=== PATIENT | male | born 1970 | race American Indian/Alaskan Native ===

== ENCOUNTER 2021-09-01 09:36 | Emergency (ER) | payer SELFPAY ==
--- NOTE | 2021-09-01 11:53 | Emergency Department Report ---
ED Chest Pain HPI - General Chief Complaint: Chest Pain Stated Complaint: BUMP ON HANDS/CP Time Seen by Provider: 09/01/21 11:36 Source: patient Mode of arrival: Ambulatory Limitations: No Limitations - History of Present Illness Initial Comments: 50-year-old -[place] male patient presents with complaints of right- sided chest pain x3 days. He states the pain feels like a pressure and rates it as a 7/10 in severity. Pain worsens with deep inhalation. Patient also reports shortness of breath at rest that worsens with exertion. He admits to a nonproductive cough without hemoptysis. No loss of taste or smell per patient. He is not vaccinated against COVID-19. He denies any past medical history or heart history or family heart history. 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 He denies any leg pain/swelling or history of DVT/PE/cancer. Pain Radiation: back - Related Data Previous Rx's Medication Instructions Recorded Last Taken Type Ibuprofen [Motrin] 800 mg PO Q8HR #30 tablet 05/22/15 Unknown Rx traMADoL [Ultram 50 MG tab] 50 mg PO Q6HR PRN #20 tablet 05/22/15 Unknown Rx Acetaminophen/Codeine [Tylenol #3] 1 tab PO Q6H PRN #20 tab 08/01/15 Unknown Rx Cyclobenzaprine HCl [Flexeril 5 MG 10 mg PO TID #15 tab 08/01/15 Unknown Rx TAB] Amoxicillin/Potassium Clav 1 each PO BID 10 Days #20 tab 09/01/21 Unknown Rx [Augmentin 875-125 Tablet] Azithromycin [Zithromax Z-ERMIAS] 0 mg PO DAILY #6 tab 09/01/21 Unknown Rx Allergies Allergy/AdvReac Type Severity Reaction Status Date / Time No Known Allergies Allergy Unverified 08/01/15 14:27 Heart Score - HEART Score History: Slightly suspicious EKG: Normal Age: 45-65 Risk factors: No known risk factors Troponin: < normal limit HEART Score: 1 - EKG Read Time Time EKG Completed: 09:50 EKG Read Time: 09:55 - Critical Actions Critical Actions: 0-3 pts:0.9-1.7%risk of adverse cardiac event.Candidate for discharge ED Review of Systems ROS: Stated complaint: BUMP ON HANDS/CP Other details as noted in HPI Constitutional: malaise. denies: chills, fever, weakness Respiratory: cough, shortness of breath, SOB with exertion, SOB at rest Cardiovascular: chest pain. denies: palpitations, edema, syncope Gastrointestinal: denies: abdominal pain, nausea, vomiting, diarrhea Musculoskeletal: denies: back pain Neurological: denies: headache, numbness, paresthesias, abnormal gait ED Past Medical Hx - Social History Smoking Status: Never Smoker Substance Use Type: None - Medications Home Medications: Home Medications Medication Instructions Recorded Confirmed Last Taken Type Ibuprofen [Motrin] 800 mg PO Q8HR #30 tablet 05/22/15 Unknown Rx traMADoL [Ultram 50 MG tab] 50 mg PO Q6HR PRN #20 tablet 05/22/15 Unknown Rx Acetaminophen/Codeine [Tylenol #3] 1 tab PO Q6H PRN #20 tab 08/01/15 Unknown Rx Cyclobenzaprine HCl [Flexeril 5 MG 10 mg PO TID #15 tab 08/01/15 Unknown Rx TAB] Amoxicillin/Potassium Clav 1 each PO BID 10 Days #20 tab 09/01/21 Unknown Rx [Augmentin 875-125 Tablet] Azithromycin [Zithromax Z-ERMIAS] 0 mg PO DAILY #6 tab 09/01/21 Unknown Rx ED Physical Exam - General Limitations: No Limitations General appearance: alert, in no apparent distress - Head Head exam: Present: atraumatic, normocephalic - Eye Eye exam: Present: normal appearance. Absent: scleral icterus - Neck Neck exam: Present: normal inspection, full ROM - Respiratory Respiratory exam: Present: normal lung sounds bilaterally. Absent: respiratory distress - Cardiovascular Cardiovascular Exam: Present: regular rate, normal rhythm. Absent: systolic murmur, diastolic murmur, rubs, gallop - Extremities Exam Extremities exam: Absent: calf tenderness (No swelling or tenderness to palpation noted bilaterally to leg) - Back Exam Back exam: Present: full ROM. Absent: CVA tenderness (R), paraspinal tenderness, vertebral tenderness - Neurological Exam Neurological exam: Present: alert, oriented X3 - Psychiatric Psychiatric exam: Present: normal affect, normal mood - Skin Skin exam: Present: warm, dry, intact, normal color. Absent: rash, cyanosis ED Course Vital Signs 09/01/21 09/01/21 09:41 18:06 Temperature 99.5 F 97.8 F Pulse Rate 90 85 Respiratory 16 16 Rate Blood Pressure 155/86 135/78 [Right] O2 Sat by Pulse 98 96 Oximetry ED Medical Decision Making - Lab Data Result diagrams: 09/01/21 12:12 09/01/21 12:12 Lab Results 09/01/21 09/01/21 09/01/21 Range/Units 12:12 12:12 12:12 WBC 13.9 H (4.5-11.0) K/mm3 RBC 5.02 (3.65-5.03) M/mm3 Hgb 14.4 (11.8-15.2) gm/dl Hct 45.2 (35.5-45.6) % MCV 90 (84-94) fl MCH 29 (28-32) pg MCHC 32 (32-34) % RDW 14.4 (13.2-15.2) % Plt Count 238 (140-440) K/mm3 Lymph % (Auto) 13.7 (13.4-35.0) % [place] % (Auto) 16.0 H (0.0-7.3) % Eos % (Auto) 0.0 (0.0-4.3) % Baso % (Auto) 0.2 (0.0-1.8) % Lymph # (Auto) 1.9 (1.2-5.4) K/mm3 [place] # (Auto) 2.2 H (0.0-0.8) K/mm3 Eos # (Auto) 0.0 (0.0-0.4) K/mm3 Baso # (Auto) 0.0 (0.0-0.1) K/mm3 Seg Neutrophils % 70.1 H (40.0-70.0) % Seg Neutrophils # 9.7 H (1.8-7.7) K/mm3 D-Dimer > 98720 H (0-234) ng/mlDDU Sodium 131 L (137-145) mmol/L Potassium 3.3 L (3.6-5.0) mmol/L Chloride 94.6 L (98-107) mmol/L Carbon Dioxide 24 (22-30) mmol/L Anion Gap 16 mmol/L BUN 5 L (9-20) mg/dL Creatinine 0.8 (0.8-1.3) mg/dL Estimated GFR > 60 ml/min BUN/Creatinine Ratio 6 % Glucose 109 H (75-100) mg/dL Calcium 9.0 (8.4-10.2) mg/dL Total Bilirubin 1.00 (0.1-1.2) mg/dL AST 24 (5-40) units/L ALT 33 (7-56) units/L Alkaline Phosphatase 66 (35-129) units/L Troponin T < 0.010 (0.00-0.029) ng/mL NT-Pro-B Natriuret Pep (0-900) pg/mL Total Protein 7.8 (6.3-8.2) g/dL Albumin 3.9 (3.9-5) g/dL Albumin/Globulin Ratio 1.0 % 09/01/21 Range/Units 12:12 WBC (4.5-11.0) K/mm3 RBC (3.65-5.03) M/mm3 Hgb (11.8-15.2) gm/dl Hct (35.5-45.6) % MCV (84-94) fl MCH (28-32) pg MCHC (32-34) % RDW (13.2-15.2) % Plt Count (140-440) K/mm3 Lymph % (Auto) (13.4-35.0) % [place] % (Auto) (0.0-7.3) % Eos % (Auto) (0.0-4.3) % Baso % (Auto) (0.0-1.8) % Lymph # (Auto) (1.2-5.4) K/mm3 [place] # (Auto) (0.0-0.8) K/mm3 Eos # (Auto) (0.0-0.4) K/mm3 Baso # (Auto) (0.0-0.1) K/mm3 Seg Neutrophils % (40.0-70.0) % Seg Neutrophils # (1.8-7.7) K/mm3 D-Dimer (0-234) ng/mlDDU Sodium (137-145) mmol/L Potassium (3.6-5.0) mmol/L Chloride (98-107) mmol/L Carbon Dioxide (22-30) mmol/L Anion Gap mmol/L BUN (9-20) mg/dL Creatinine (0.8-1.3) mg/dL Estimated GFR ml/min BUN/Creatinine Ratio % Glucose (75-100) mg/dL Calcium (8.4-10.2) mg/dL Total Bilirubin (0.1-1.2) mg/dL AST (5-40) units/L ALT (7-56) units/L Alkaline Phosphatase (35-129) units/L Troponin T (0.00-0.029) ng/mL NT-Pro-B Natriuret Pep 13.85 (0-900) pg/mL Total Protein (6.3-8.2) g/dL Albumin (3.9-5) g/dL Albumin/Globulin Ratio % - Radiology Data Radiology results: report reviewed CHEST 2 VIEWS INDICATION / CLINICAL INFORMATION: right chest pain. COMPARISON: None available. FINDINGS: SUPPORT DEVICES: None. HEART / MEDIASTINUM: No significant abnormality. LUNGS / PLEURA: Focal rounded airspace opacity within the right mid lung zone/right perihilar region measures approximately 6 cm. There are other patchy opacities within the bilateral lung ba ses. No pneumothorax. ADDITIONAL FINDINGS: No significant additional findings. IMPRESSION: 1. Right upper lobar pneumonia. Interval imaging following appropriate antimicrobial therapy is recommended to ensure resolution. CTA CHEST WITH IV CONTRAST INDICATION: right chest pain, elevated dimer. TECHNIQUE: Axial CT images were obtained through the chest after injection of 85 cc Omnipaque 350 IV contrast. 3 plane MIP reconstructions were produced. All CT scans at this location are performed using CT dose reduction for ALARA by means of automated exposure control. COMPARISON: 2 views of the chest performed today. FINDINGS: PULMONARY ARTERIES: No pulmonary emboli. AORTA AND ARTERIES: No significant abnormality. HEART: No significant abnormality. LYMPH NODES:No significant adenopathy. TRACHEA AND BRONCHI:No significant abnormality. LUNGS: Right upper lobe consolidation with air bronchograms is noted, correlating with the findings on the prior chest radiographs. The lungs are otherwise clear. No pneumothorax or pleural effusion. ADDITIONAL FINDINGS: None. UPPER ABDOMEN: No acute findings. Multiple hepatic cysts measure up to 1.5 cm. BONES: No significant osseous abnormality. IMPRESSION: 1. No CT evidence for pulmonary embolism. 2. Right upper lobe pneumonia. Reevaluation with PA and lateral chest radiographs in 2-3 weeks is recommended to ensure clearing. - Medical Decision Making 50-year-old -[place] male patient presents with complaints of right- sided chest pain x3 days. He states the pain feels like a pressure and rates it as a 7/10 in severity. Pain worsens with deep inhalation. Patient also reports shortness of breath at rest that worsens with exertion. He admits to a nonproductive cough without hemoptysis. No loss of taste or smell per patient. He is not vaccinated against COVID-19. He denies any past medical history or heart history or family heart history. 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 He denies any leg pain/swelling or history of DVT/PE/cancer. Patient ambulated by this provider and ambulatory pulse ox noted to be 91% on room air. No acute abnormalities noted on EKG. Troponin normal. CBC shows white count of 13.9. Chest x-ray shows right lobe pneumonia. 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 Dimer greater than 10,000. CTA chest is negative for PE and continues to show right lobe pneumonia. Patient is nontoxic-appearing. Discussed patient in detail with Dr. Oliveira-states given patient does not have comorbidities and is well-appearing, a trial of outpatient antibiotics for treatment is reasonable. Discussed this with patient. He states he is feeling well at this time. I discussed the possibility of admission for his pneumonia and patient states he would like to try antibiotics at home first. I discussed in great detail with patient signs and symptoms that should prompt immediate return to the ED, he verbalizes understanding. Also advised patient to drink plenty of water, take vitamin C and zinc, and have outpatient COVID-19 testing performed within the next 24 to 48 hours and self quarantine until his results are back. He denies any known drug allergies. Dose of Rocephin given here in ED. Patient is to discharge Critical care attestation.: If time is entered above; I have spent that time in minutes in the direct care of this critically ill patient, excluding procedure time. ED Disposition Clinical Impression: Right upper lobe pneumonia Disposition: HOME / SELF CARE / HOMELESS Is pt being admited?: No Condition: Stable Instructions: Community-Acquired Pneumonia, Adult, Gaic-mh-Olec, Bacterial Pneumonia (ED) Prescriptions: Amoxicillin/Potassium Clav [Augmentin 875-125 Tablet] 1 each PO BID 10 Days #20 tab Azithromycin [Zithromax Z-ERMIAS] 0 mg PO DAILY #6 tab Referrals: [facility] [Provider Group] - 3-5 Days Forms: Work/School Release Form(ED)
--- NOTE | 2021-09-01 12:25 | XRay Report ---
CHEST 2 VIEWS INDICATION / CLINICAL INFORMATION: right chest pain. COMPARISON: None available. FINDINGS: SUPPORT DEVICES: None. HEART / MEDIASTINUM: No significant abnormality. LUNGS / PLEURA: Focal rounded airspace opacity within the right mid lung zone/right perihilar region measures approximately 6 cm. There are other patchy opacities within the bilateral lung bases. No pne umothorax. ADDITIONAL FINDINGS: No significant additional findings. IMPRESSION: 1. Right upper lobar pneumonia. Interval imaging following appropriate antimicrobial therapy is nahid mmended to ensure resolution. Signer Name: Srikanth Padilla MD Signed: 09/01/2021 12:21 PM Workstation Name: [id number]
[2021-09-01 12:45] LABS: Basophils % (Auto) 0.2 % (0.0-1.8); Hematocrit 45.2 % (35.5-45.6); Hemoglobin 14.4 gm/dl (11.8-15.2); Lymphocytes # (Auto) 1.9 K/mm3 (1.2-5.4); Lymphocytes % (Auto) 13.7 % (13.4-35.0); Mean Corpuscular HGB Conc 32 % (32-34); Mean Corpuscular Volume 90 fl (84-94); Monocytes # (Auto) 2.2 K/mm3 (0.0-0.8); Platelet Count 238 K/mm3 (140-440); Red Blood Count 5.02 M/mm3 (3.65-5.03); Red Cell Distribution Width 14.4 % (13.2-15.2)
[2021-09-01 13:20] LABS: Alanine Aminotransferase 33 units/L (7-56); Albumin 3.9 g/dL (3.9-5); BUN/Creatinine Ratio 6; Blood Urea Nitrogen 5 mg/dL (9-20); Hemolysis Index 3
[2021-09-01] MEDS ORDERED: SODIUM CHLORIDE 0.9% 1000 ML 1,000 ML IV ONE (13:37)
[2021-09-01] MEDS ORDERED: POTASSIUM CHLORIDE ER 20 MEQ TAB PO ONE (13:37)
--- NOTE | 2021-09-01 15:15 | Cat Scan Report ---
CTA CHEST WITH IV CONTRAST INDICATION: right chest pain, elevated dimer. TECHNIQUE: Axial CT images were obtained through the chest after injection of 85 cc Omnipaque 350 IV contrast. 3 plane MIP reconstructions were produced. All CT scans at this location are performed using CT dose r eduction for ALARA by means of automated exposure control. COMPARISON: 2 views of the chest performed today. FINDINGS: PULMONARY ARTERIES: No pulmonary emboli. AORTA AND ARTERIES: No significant abnormality. HEART: No significant abnormality. LYMPH NODES:No significant adenopathy. TRACHEA AND BRONCHI:No significant abnormality. LUNGS: Right upper lobe consolidation with air bronchograms is noted, correlating with the findings o n the prior chest radiographs. The lungs are otherwise clear. No pneumothorax or pleural effusion. ADDITIONAL FINDINGS: None. UPPER ABDOMEN: No acute findings. Multiple hepatic cysts measure up to 1.5 cm. BONES: No significant osseous abnormality. IMPRESSION: 1. No CT evidence for pulmonary embolism. 2. Right upper lobe pneumonia. Reevaluation with PA and lateral chest radiographs in 2-3 weeks is rec ommended to ensure clearing. Signer Name: Alexandre Melvin MD Signed: 09/01/2021 3:11 PM Workstation Name: [id number]
[2021-09-01] MEDS ORDERED: cefTRIAXone/NS 1 GM/50 ML 1 GM/50 ML BAG IV ONE (15:59)
[2021-09-01 18:17] VITALS: BP 135/78
--- NOTE | 2021-09-05 13:27 | Electrocardiograph Report ---
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
== END 2021-09-01 18:18 | disposition home or self-care (01) ==
LOC: ED 09:36
DX: J18.1 Lobar pneumonia, unspecified organism (principal)
CPT/HCPCS: 36415; 71046; 71275; 80053; 83880; 84484; 85025; 85379; 93005; 93010; 96361; 96365; 99284; J0696; J7030; Q9967; Q0162